=== PATIENT | male | born 1985 | race Caucasian/White ===

== ENCOUNTER 2023-01-06 08:03 | Day surgery (SDC) | payer OTHER, BC ==
[~2023-01-06 08:03] MED LIST: Dexamethasone 4 MG/ML SDV ONE; Glycopyrrolate 0.2 MG/ML 5 ML MDV ONE; Neostigmine Methylsulfate 1 MG/ML 5 ML Syringe ONE; Ondansetron 4 MG/2 ML SDV ONE; Propofol 200 MG/20 ML SDV ONE; Rocuronium 50 MG/5 ML Vial ONE; Succinylcholine 200 MG/10 ML MDV ONE; fentaNYL 250 MCG/5 ML SDV ONE
[2023-01-06] MEDS ORDERED: Acetaminophen 500 MG Tab PO ONE (08:15)
[2023-01-06] MEDS ORDERED: Lactated Ringers 1,000 ML IV SCH (08:30)
[2023-01-06] MEDS ORDERED: Bupivacaine 0.5%/EPINEPHrine 1:200,000 50 ML MDV ONE (09:01)
[2023-01-06] MEDS ORDERED: ceFAZolin 2 GM in Sodium Chloride 0.9% 50 ML IV ONE (09:15)
[2023-01-06] MEDS ORDERED: ceFAZolin 2 GM in Premix Bag 1 BAG IV ONE (09:15)
[2023-01-06] MEDS ORDERED: Propofol 200 MG/20 ML SDV ONE ×2 (10:55→12:10)
[2023-01-06] MEDS ORDERED: Rocuronium 50 MG/5 ML Vial ONE (10:55)
[2023-01-06] MEDS ORDERED: Ketorolac 30 MG/ML SDV ONE (11:50)
[2023-01-06] MEDS ORDERED: fentaNYL 100 MCG/2 ML SDV ONE (12:12)
[2023-01-06] MEDS ORDERED: Acetaminophen/HYDROcodone 325-5 MG Tab PO ONE (14:15)
== END 2023-01-06 14:00 | disposition home or self-care (01) ==
LOC: JP.SDS 08:03
PROVIDERS: ATTEND Student in an Organized Health Care Education/Training Program
DX: K40.90 Unilateral inguinal hernia, without obstruction or gangrene, not specified as recurrent (principal); D17.6 Benign lipomatous neoplasm of spermatic cord
CPT/HCPCS: 49650; A9270; C1781; J0330; J0690; J1100; J1885; J2405; J2704; J2710; J3010; J3490; J7120